=== PATIENT | male | born 1970 | race Caucasian/White ===

== ENCOUNTER 2022-07-11 06:25 | Emergency (ER) | payer BC, SELFPAY ==
[2022-07-11 06:26] VITALS: BP 154/90; PULSE 92; RESP 17; TEMP 36.6; O2SAT 98; BMI 27.8
[2022-07-11 06:54] VITALS: O2SAT 95
--- NOTE | 2022-07-11 06:55 | EKG12_ITS ---
Test Reason : SOB Blood Pressure : / mmHG Vent. Rate : 091 BPM Atrial Rate : 091 BPM P-R Int : 122 ms QRS Dur : 078 ms QT Int : 346 ms P-R-T Axes : 035 061 007 degrees QTc Int : 425 ms Normal sinus rhythm Normal ECG Confirmed by DANIELLE RAMIREZ, ARACELI ([id number]), news copy editor AKILA DIAZ ([id number]) on 07/15/2022 10:12:35 AM Referred By: Confirmed By:CECILIA SANTOS MD
[2022-07-11 07:03] VITALS: PULSE 90; RESP 18
[2022-07-11] MEDS: Ipratropium/Albuterol Sulfate 3 ML AMPUL.NEB INHALATION (07:04)
--- NOTE | 2022-07-11 07:23 | EDS_ITS ---
HPI History of Present Illness Chief Complaint: Shortness of Breath Narrative Narrative: Patient is 51-year-old male who reports a remote history of pneumonia at age 28 and age 38 and otherwise no clinically significant medical issues. He states that over the past 2 to 3 days he has had congestion and drainage and mild cough. He reports that if he begins to speak or walks across the room he feels like his oxygen level will drop and will have increased shortness of breath. He denies any chest pain or palpitations associated with this. However he states that the symptoms or not resolving on their own and secondary to this he comes in for evaluation [facility] Medical History Pneumonia Home Medications albuterol sulfate 90 mcg/actuation aerosol inhaler (Ventolin HFA) 1 - 2 puff inhalation Q4H PRN PRN Wheezing #1 device 07/11/22 [Rx Last Taken Unknown] prednisone 20 mg tablet 40 mg PO DAILY 5 days #10 tabs 07/11/22 [Rx Last Taken Unknown] Allergy/AdvReac Type Severity Reaction Status Date / Time No Known Allergies Allergy Verified 07/11/22 06:29 Surgical History no surgical history Social History Smoking Status: Never smoker [facility] ED Constitutional Constitutional ED: Denies chills or fever(s) ENT ENT ED: Reports rhinorrhea; Denies sore throat Cardiovascular Cardiovascular: Denies chest pain Respiratory/Chest Respiratory/Chest: Reports cough and dyspnea Gastrointestinal Gastrointestinal: Denies abdominal pain, diarrhea, nausea or vomiting Genitourinary Genitourinary ED: Denies dysuria Musculoskeletal Musculoskeletal: Reports myalgias Integumentary Denies rash Neurologic Neurologic: Denies headache(s) Hematologic/Lymphatic Hematologic/Lymphatic: Denies easy bleeding or easy bruising EXAM Physical Exam Const Vital Signs: 07/11/22 06:26 07/11/22 06:54 Temperature 98 F Temperature Source Oral Pulse Rate 92 Respiratory Rate 17 Respiratory Effort Short of Breath Respiratory Depth Normal Respiratory Pattern Tachypnea Blood Pressure 154/90 H Blood Pressure Mean 111 Pulse Ox 98 Oxygen Delivery Method Room Air Room Air Positive well nourished and well developed General Appearance ED: well developed HEENT Reports moist mucous membranes HEENT Narrative: Nasal mucosa is hyperemic and boggy and there is cobblestoning the posterior pharynx consistent with sinus drainage without airway edema or compromise Eyes PERRL and EOMs intact bilaterally Neck supple and no JVD Neck Narrative: Positive anterior cervical lymphadenopathy No crepitance noted Chest Wall palpation of chest normal Resp normal respiratory effort Resp Narrative: Breath sounds are diminished throughout with faint rhonchi noted in bilateral bases but otherwise no nasal flaring retractions tachypnea or accessory muscle use Cardio regular rate and regular rhythm GI normal to inspection, nondistended, normoactive bowel sounds, non-tender, non- distended and no masses Auscultation: normoactive bowel sounds Palpation: soft Extremity normal to inspection Extremity Narrative: No asymmetric edema no pitting edema negative Homans' sign bilaterally Neuro oriented x3 and CN's II-XII intact bilaterally Sensorium / Orientation: alert Psych mental status grossly normal Skin no rashes or lesions noted MDM MDM MDM Narrative Medical decision making narrative: Patient presented to the ER satting 98% on room air and afebrile. His work of breathing was normal as well but as he reported increased shortness of breath with exertion and elected perform a basic cardiac work-up. Also with his congestion and drainage there is concern this could be COVID or influenza related so a viral swab was added. At this time the labs and x-ray results are pending so the patient will be signed out to the incoming day physician Dr. Wakefield. I feel that if patient's work-up is negative and he can ambulate without desaturation then he should be safe for discharge as this is most likely lung inflammation from a viral source. Discharge Plan Triage Chief Complaint: Shortness of Breath ED Provider: Samuel Morris Dx/Rx/DC Orders Clinical Impression: Viral syndrome, Dyspnea Instructions: ED Dyspnea, ED URI, Viral, No Abx (Adult) Prescriptions: New prednisone 20 mg tablet 40 mg PO DAILY 5 Days Qty: 10 0RF albuterol sulfate [Ventolin HFA] 90 mcg/actuation HFA aerosol inhaler 1 - 2 puff inhalation Q4H PRN PRN (Reason: Wheezing) Qty: 1 0RF Primary Care Provider: Sunil Devine Referrals: Sunil Devine MD [Primary Care Provider] - Activity Restrictions/Additional Instructions: Please use the prescribed steroids and inhaler to help with lung inflammation and breathing and return to the ER should you have any further concerns
[2022-07-11 07:34] LABS: Absolute Lymphocyte Count 2.59 X10^3/uL (0.83-4.51); Absolute Neutrophil Count 7.3 X10^3/uL (2.0-7.7); Basophil# 0.04 X10^3/uL; Basophil% 0.4 % (0-1); Eosinophil# 0.06 X10^3/uL; Eosinophils% 0.5 % (0-5); Hemoglobin 14.7 g/dL (13.0-16.5); Lymphocyte # 2.59 X10^3/ul (0.83-4.51); Lymphocyte % 23.1 % (19-41); Mean Corp Hgb Conc 32.7 g/dL (32-36); Mean Corpuscular Hgb 25.8 pg (27.0-32.0); Mean Corpuscular Volume 78.9 fL (80-94); Mean Platelet Vol. 10.1 fl (6.2-12.0); Monocyte# 1.22 X10^3/uL; Monocyte% 10.9 % (0-10); NRBC Flagged by Analyzer 0 % (0-5); Neutrophil # 7.29 X10^3/uL (2.7-7.7); Neutrophil % 64.8 % (47-70); POSITIVE COUNT YES; Platelet Count 306 K/mm3 (150-450); RBC Distribution Width CV 13.1 % (11.6-14.6); RBC Distribution Width SD 37.2 fl (35.1-43.9); White Blood Count 11.2 K/mm3 (4.4-11.0)
--- NOTE | 2022-07-11 07:40 | RAD_ITS ---
EXAM: XR CHEST, 2 VIEWS CLINICAL INDICATION: dyspnea TECHNIQUE: Frontal and lateral views of the chest. This report was created using [employer] report generation technology. COMPARISON: XR Chest dated July 20, 2012 FINDINGS: LUNGS AND PLEURAL SPACES: Shallow inspiration associated with minor atelectatic changes at the lung bases. No pneumothorax. No effusion. HEART: Normal heart size. MEDIASTINUM: No mediastinal or hilar mass. BONES/JOINTS: No acute abnormality. SOFT TISSUES: Normal. RAD/Chest PA and Lateral IMPRESSION: No acute cardiopulmonary abnormality. No interval change. Electronically Signed: Bacilio Cobb MD at 8:33 EST ,
[2022-07-11 07:42] LABS: Anion Gap 8 (5-15); BUN 7 mg/dL (7-18); BUN/Creat Ratio 6.8 RATIO (10-20); Calcium,Total 9.2 mg/dL (8.5-10.1); Chloride 102 mmol/L (98-107); Creatinine, Serum 1.03 mg/dL (0.70-1.30); EST Glomerular Filtration Rate 80 mL/min (>60); Est Glom Filt Rate - Afr Amer 97 mL/min (>60); Estimated Creatinine Clearance 85.64 ml/min; Glucose 146 mg/dL (74-106); Magnesium 2.5 mg/dL (1.6-2.6); Potassium 3.9 mmol/L (3.5-5.1); Sodium Level 136 mmol/L (136-145); Troponin-I HS 38 pg/mL (3.0-78.0)
[2022-07-11] MEDS: dexAMETHasone 10 MG/ML Vial IV (07:56)
[2022-07-11 07:57] LABS: Differential Indicated SCAN CRITERIA MET
[2022-07-11 09:22] VITALS: BP 137/85; PULSE 86; O2SAT 93
[2022-07-11 09:44] VITALS: BP 141/83; O2SAT 93
== END 2022-07-11 09:55 | disposition home or self-care (01) ==
PROVIDERS: Emergency Provider Emergency Medicine; PCP Family Medicine; Visit Provider Emergency Medicine
DX: B34.9 Viral infection, unspecified (principal); R06.00 Dyspnea, unspecified; Z87.01 Personal history of pneumonia (recurrent)
CPT/HCPCS: 71046; 80048; 83735; 84484; 85025; 87428; 93005; 94640; 96374; 99283; A4216

== ENCOUNTER 2024-03-06 17:03 | Emergency (ER) | payer BC, SELFPAY ==
[2024-03-06 17:05] VITALS: BP 133/85; PULSE 79; RESP 13; TEMP 36.6; O2SAT 97
--- NOTE | 2024-03-06 17:06 | EDS_ITS ---
HPI History of Present Illness Chief Complaint: Allergic Reaction Informant: patient and spouse/S.O. Narrative Narrative: 53-year-old healthy male was on his 0 turn lawnmower cutting the grass when a bee stung him in the right lower leg. He states he started itching profusely developing hives. He notes tingling to the bilateral lips. He states that last summer he had several bee stings that did not cause any reaction. He has no known allergies. He took Soledad prior to arrival. No vomiting or diarrhea. No wheezing. [facility] Medical History Pneumonia Home Medications ?Medication ?Instructions ?Recorded ?Last Taken ?Type albuterol sulfate 90 mcg/actuation 1 - 2 puff inhalation Q4H PRN PRN 07/11/22 Unknown Rx aerosol inhaler (Ventolin HFA) Wheezing #1 device prednisone 20 mg tablet 40 mg (2 x 20 mg) PO DAILY 5 days 07/11/22 Unknown Rx #10 tabs epinephrine 0.3 mg/0.3 mL 0.3 mg (0.3 mL) IM Q10M PRN PRN 03/06/24 Unknown Rx injection, auto-injector (EpiPen anaphylaxis #2 ea 2-Jasiel) Allergy/AdvReac Type Severity Reaction Status Date / Time bee venom protein (honey Allergy Severe Anaphylaxis Verified 03/06/24 17:04 bee) (bee sting) Social History Smoking Status: Never smoker ROS ROS ED Constitutional Constitutional ED: Denies chills or weight loss Eyes Eyes: Denies change in vision or diplopia ENT ENT ED: Denies ear pain, rhinorrhea or sore throat Cardiovascular Cardiovascular: Denies chest pain, orthopnea, palpitations or racing heartbeat Respiratory/Chest Respiratory/Chest: Denies cough, dyspnea or orthopnea Gastrointestinal Gastrointestinal: Denies abdominal pain, diarrhea, nausea or vomiting Genitourinary Genitourinary ED: Denies dysuria, hematuria or urinary frequency Musculoskeletal Musculoskeletal: Denies arthralgias or myalgias Integumentary Reports other Details: Diffuse hives ; Denies abscess or rash Neurologic Neurologic: Reports paresthesias; Denies headache(s) or weakness Psychiatric Psychiatric: Denies anxiety, depression, suicidal ideation or suicidal thoughts Endocrine Endocrinology: Denies polydipsia, polyphagia or polyuria Allergic/Immunologic Allergic/Immunologic ED: Denies mouth swelling, tongue swelling or urticaria EXAM Physical Exam Const Vital Signs: 03/06/24 17:05 03/06/24 18:03 Temperature 98 F Temperature Source Oral Pulse Rate 79 73 Respiratory Rate 13 15 Blood Pressure 133/85 H 145/92 H Blood Pressure Mean 101 109 Pulse Ox 97 97 Oxygen Delivery Method Room Air Room Air Positive well nourished and well developed General Appearance ED: well developed HEENT Reports normocephalic, head/scalp atraumatic and moist mucous membranes HEENT Narrative: No significant lip tongue or uvula swelling. Eyes PERRL and EOMs intact bilaterally Neck no lymphadenopathy, supple and no JVD Resp normal respiratory effort and clear to auscultation bilaterally Cardio regular rate, regular rhythm and no murmurs GI normal to inspection, nondistended, normoactive bowel sounds and non-tender Palpation: soft Back/Spine no CVA tenderness and normal ROM Extremity normal to inspection General Extremety ED: Negative for edema General Extremity: Negative for edema Neuro oriented x3 and CN's II-XII intact bilaterally Sensorium / Orientation: alert Motor Exam: strength 5/5 throughout Psych mental status grossly normal Mood & Affect: Negative for depressed or tearful Skin no wounds Skin Narrative: Patient has hives on extremities and trunk. There are some mild hives neck and face. MDM MDM MDM Narrative Medical decision making narrative: Differential diagnosis includes but not limited to generalized allergic reaction anaphylaxis urticaria As I only see 1 organ system involvement that the skin Benadryl Solu-Medrol and Pepcid were administered. Patient had significant improvement at about the 1 hour moises. He will be observed for a total of 2 hours. Patient was instructed to take Benadryl at home. Topical Benadryl or hydrocortisone cream at the site of an animation as needed. A prescription for EpiPen will be given. Patient to return if worsening or concerns follow-up as needed History & Record Review Discussion w/independent historian: Patient and Significant other Discharge Plan Triage Chief Complaint: Allergic Reaction ED Provider: Dilip West Dx/Rx/DC Orders Clinical Impression: Allergic reaction to bee sting, Urticaria Instructions: ED BEE STING General Allergic Rxn Prescriptions: New epinephrine [EpiPen 2-Jasiel] 0.3 mg/0.3 mL auto-injector 0.3 mg IM Q10M PRN PRN (Reason: anaphylaxis) Qty: 2 0RF Rx Instructions: for 2 doses No Action prednisone 20 mg tablet 40 mg PO DAILY 5 Days Qty: 10 0RF albuterol sulfate [Ventolin HFA] 90 mcg/actuation HFA aerosol inhaler 1 - 2 puff inhalation Q4H PRN PRN (Reason: Wheezing) Qty: 1 0RF Primary Care Provider: Sunil Devine Referrals: Sunil Devine MD [[facility]] - As Needed Activity Restrictions/Additional Instructions: I would recommend Benadryl every 6 hours for the next 24 hours. You can use topical Benadryl or hydrocortisone cream at the site of the envenomation. You have also received a prescription for an EpiPen should you develop anaphylaxis as we discussed. Please return if worsening or you have any concerns Print Language: Bulgarian Disposition Disposition: Home, Self Care
[2024-03-06] MEDS: DiphenhydrAMINE 50 MG/ML Syringe 25 MG IV (17:12)
[2024-03-06] MEDS: MethylPREDNISolone 125 MG/2 ML Vial IV (17:12)
[2024-03-06] MEDS: Famotidine 20 MG Tablet 40 MG PO (17:13)
[2024-03-06 18:03] VITALS: BP 145/92; PULSE 73; RESP 15; O2SAT 97
[2024-03-06 19:00] VITALS: BP 134/88; PULSE 80; RESP 16; TEMP 36.6; O2SAT 95
== END 2024-03-06 19:09 | disposition home or self-care (01) ==
PROVIDERS: Emergency Provider Emergency Medicine; PCP Family Medicine; Visit Provider Emergency Medicine
DX: T63.441A Toxic effect of venom of bees, accidental (unintentional), initial encounter (principal); L50.9 Urticaria, unspecified
CPT/HCPCS: 96374; 96375; 99283; A4216

== ENCOUNTER 2024-07-27 07:19 | Day surgery (SDC) | payer BC, SELFPAY ==
[2024-07-27] VITALS (8 sets, daily range): BP systolic 90–130; BP diastolic 60–86; PULSE 67–92; RESP 16; TEMP 36.3–36.6; O2SAT 96–100; BMI 27.6
--- NOTE | 2024-07-27 | COLBX_PTH ---
PATIENT: CHANTAL POSADAS LOC: EN U#:[id number] AGE/SX: 53/M ROOM: RE07/27/[address]: Dr. Vlad Henriquez MD : 1970 BED: DIS: 07/27/2024 SPEC #: [id number] RECD: 07/27/24 13:25 STATUS: NORA TYSHAWN #: [id number] ROXI: 07/27/24 00:[address]: Vlad Henriquez DEPT: SURGICAL PATHOLOGY RECD BY: [place] ENTERED: 07/27/24 13:25 SP TYPE: COLON BX OTHR DR: Dr. Sunil Devine MD Tissues: COLON BIOPSY Procedures: Surgery Specimen Level IV HEADER OPERATION: Colonoscopy with biopsy PRE-OP DIAGNOSIS: Encounter for screening for malignant neoplasm of colon TISSUE SUBMITTED: Transverse colon polyp biopsy MICROSCOPIC DIAGNOSIS Transverse colon polyp, biopsy: Fragments of tubular adenoma. ERICK/ 07/28/2024 MICROSCOPIC DESCRIPTION Slides are reviewed. GROSS DESCRIPTION Received in fixative is one container labeled with the patient's name and designated Transverse colon polyp biopsy. The specimen consists of multiple irregular fragments of light verdin soft tissue that in aggregate measure 1.3 x 0.3 x 0.2 cm. The specimen is totally submitted in one cassette. 07/27/2024 TC:1 CPT:19008
--- NOTE | 2024-07-27 07:55 | PRE.ANES_ITS ---
ASA Classification* ASA Classification ASA Classification: 2 Assessment & Plan Anesthesia* Anesthesia Assessment Anesthesia Assessment: Discussed sedation and/or anesthesia options, risks, benefits, and alternatives with patient/parents/legal guardian/POA. Questions invited. The patient/parents/legal guardian/POA seems to understand and agrees to proceed with anesthesia plan. Reviewed the physical assessment, medical history, allergy history and patient home medications list prior to surgery/procedure/anesthetic and documented any changes. Performed airway and anesthesia risk assessments. Anesthesia Type Anesthesia Type: MAC History Source History Obtained from:: Patient and Chart Anesthesia Focused Assessment* Temperature: 97.9 F Pulse Rate: 92 Blood Pressure: 130/86 Respiratory Rate: 16 Pulse Ox: 100 Oxygen Delivery Method: Room Air Airway Assessment Mouth opens: >3 cm Mallampati Score: III Teeth Condition: Caps/Crowns (Left lower molar has a crown. It is tight.) Neck Range of motion (ROM): Limited ROM (Somewhat decreased extension) Focused Labs Anesthesia Preop lab: CBC WBC 11.2 K/mm3 (4.4-11.0) H 07/11/22 07:17 RBC 5.70 M/mm3 (4.6-6.2) 07/11/22 07:17 Hgb 14.7 g/dL (13.0-16.5) 07/11/22 07:17 Hct 45.0 % (40-54) 07/11/22 07:17 Plt Count 306 K/mm3 (150-450) 07/11/22 07:17 CHEMISTRY Potassium 3.9 mmol/L (3.5-5.1) 07/11/22 07:17 Sodium 136 mmol/L (136-145) 07/11/22 07:17 Magnesium 2.5 mg/dL (1.6-2.6) 07/11/22 07:17 BUN 7 mg/dL (7-18) 07/11/22 07:17 Creatinine 1.03 mg/dL (0.70-1.30) 07/11/22 07:17 Glucose 146 mg/dL (74-106) H 07/11/22 07:17 TSH 0.28 uIU/mL (0.358-3.74) L 08/03/12 15:21 COAG Pre-Assessment Diagnosis/Proposed Procedure Planned Operative Procedure(s): COLONOSCOPY Anesthesia History Anesthesia History - research technologist: Anesthesia History - research technologist Hx Hospitalization No 07/22/24 14:07 Any Problems With Anesthesia No 07/22/24 14:07 Cholinesterase deficiency No 07/22/24 14:07 You/Your Family Experience No 07/22/24 14:07 fever (hyperthermia) with Relationship Recent Exposure to Contagious No 07/27/24 07:38 Disease Does patient have nerve No 07/22/24 14:07 stimulator Patient instructed to have device shut off --Does patient have Pacemaker No 07/27/24 07:38 or ICD? When Was Last Pacemaker Check QUESTION #4 FULL TEXT: You/Your Family Experience fever (hyperthermia) with Anesthesia Last Oral Intake Last Oral intake: Last Oral Intake NPO since 04:30 07/27/24 07:38 Meds taken in AM with sips of No 07/27/24 07:38 water? Meds patient instructed to take am of surgery Any additional information?: Yes NPO since: :30 (Patient finished prep at 4:30 AM.) PONV PONV - research technologist: PONV - research technologist Female No 07/22/24 14:07 HX of Motion Sickness Yes 07/22/24 14:07 HX of N/V After Surgery No 07/22/24 14:07 Non-Smoker Yes 07/22/24 14:07 Duration of Surgery greater No 07/22/24 14:07 than 60 minutes Number of Risk Factors 2 07/22/24 14:07 PONV Score Moderate Risk 07/22/24 14:07 Height & Weight Height & Weight: Anesthesia: Height & Weight Height 5 ft 9 in 07/27/24 07:38 Weight: 84.7 kg 07/27/24 07:38 Body Mass Index (BMI) 27.6 07/27/24 07:38 Respiratory Assessment Respiratory Assessment - research technologist: Respiratory Tract Infection Hx - research technologist Hx Respiratory Tract Infection No 07/22/24 14:07 STOP Sleep Apnea STOP Sleep Apnea - research technologist: STOP Sleep Apnea - research technologist Hx Hypertension No 07/22/24 14:07 Hx Sleep Apnea No 07/22/24 14:07 CPAP BIPAP Do you snore loudly (louder No 07/22/24 14:07 than talking or can be heard Do you often feel tired/ No 07/22/24 14:07 fatigued/ sleepy during daytime? Has anyone observed you stop No 07/22/24 14:07 breathing during sleep? STOP Results Negative 07/22/24 14:07 QUESTION #5 FULL TEXT : Do you snore loudly (louder than talking or can be heard through closed doors)? Tobacco Use History Tobacco Use History - research technologist: Tobacco Use History - research technologist Tobacco Use Smoking Status Never smoker 07/22/24 14:07 Hx Tobacco Use No 07/22/24 14:07 Years Smoking Packs Smoked per Day Smoking Cessation Date was within the last 15 years Hx Smoking Cessation Date Hx Smoking Cessation Counseling Hematologic Medial History Hematologic Hx - research technologist: Hematologic Medical Hx - manager utilization Hx of Blood Transfusion No 07/22/24 14:07 Hx of Transfusion in last 3 No 07/22/24 14:07 Months Date of Last Transfusion (if within last 3 months) Ever experience any problems No 07/22/24 14:07 with transfusion(s)? Specify any problems Hx of Preganancy in last 3 N/A 07/22/24 14:07 Months Nurse Filling Out Transfusion [id number] 07/22/24 14:07 & Questions: Date: 07/22/24 07/22/24 14:07 Time: 14:08 07/22/24 14:07 Patient unable to answer at this time (ie. confused, unrespo /Reproduction History /Reproductive History - research technologist: /Reproductive Hx- research technologist Hx Now Gestational Age (in weeks): EDC: Hx Hx Para Hx Section SAB PFSH Medical History Non-smoker History of renal stone Family history of colon cancer in father Pneumonia Home Medications ?Medication ?Instructions ?Recorded ?Last Taken ?Type epinephrine 0.3 mg/0.3 mL 0.3 mg (0.3 mL) IM Q10M PRN PRN 03/06/24 Unknown Rx injection, auto-injector (EpiPen anaphylaxis #2 ea 2-Jasiel) Allergy/AdvReac Type Severity Reaction Status Date / Time bee venom protein (honey Allergy Severe Anaphylaxis Verified 07/27/24 07:38 bee) (bee sting) Family History Father Colon cancer, Onset Age: 60 w/brain mets at 62yrs Mother Hypertension Rheumatoid arthritis Surgical History (Updated 07/27/24 @ 07:[address] Jorge Grey MD) S/P pilonidal cyst excision Hx of tonsillectomy Social History household members: spouse current occupational status: employed Smoking Status: Never smoker alcohol intake: current alcohol intake frequency: holidays/special occasions only Alcohol type: beer substance use type: does not use Review of Systems (Anesthesia) ROS Narrative System reviewed and no additional complaints, except as documented.
--- NOTE | 2024-07-27 08:41 | HP.PCM_ITS ---
[facility] - General General Date of Admission: 07/27/24 Date of Service: 07/27/24 Chief Complaint: Screening colonoscopy [facility] Narrative CHANTAL POSADAS, is a 53 M who presents for elective screening colonoscopy. He has not had a previous colonoscopy. His father had colon cancer which he was diagnosed with around age 60. It sounds as though he either had a brain metastasis or a second primary. His father ultimately . Patient denies any GI issues or complaints. No blood in his stools. No black or tarry stools. No significant constipation or diarrhea. No other family history of colon polyps or cancers that he is aware of. He presents today for colonoscopy [facility] Medical History Non-smoker History of renal stone Family history of colon cancer in father Pneumonia Home Medications ?Medication ?Instructions ?Recorded ?Last Taken ?Type epinephrine 0.3 mg/0.3 mL 0.3 mg (0.3 mL) IM Q10M PRN PRN 03/06/24 Unknown Rx injection, auto-injector (EpiPen anaphylaxis #2 ea 2-Jasiel) Allergy/AdvReac Type Severity Reaction Status Date / Time bee venom protein (honey Allergy Severe Anaphylaxis Verified 07/27/24 07:38 bee) (bee sting) Family History Father Colon cancer, Onset Age: 60 w/brain mets at 62yrs Mother Hypertension Rheumatoid arthritis Surgical History S/P pilonidal cyst excision Hx of tonsillectomy Social History household members: spouse current occupational status: employed Smoking Status: Never smoker alcohol intake: current alcohol intake frequency: holidays/special occasions only Alcohol type: beer substance use type: does not use ROS Constitutional Constitutional: Reports systems reviewed and no addt'l complaints, except as documented Eyes Eyes: Reports systems reviewed and no addt'l complaints, except as documented ENT HEENT: Reports systems reviewed and no addt'l complaints, except as documented Cardiovascular Cardiovascular: Reports systems reviewed and no addt'l complaints, except as documented Respiratory/Chest Respiratory/Chest: Reports systems reviewed and no addt'l complaints, except as documented Gastrointestinal Gastrointestinal: Reports systems reviewed and no addt'l complaints, except as documented Vital Signs Vital Signs Vital Signs: 07/27/24 07:38 07/27/24 08:02 Temperature 97.9 F 97.9 F Temperature Source Temporal Pulse Rate 92 92 Respiratory Rate 16 16 Blood Pressure 130/86 H 130/86 H Blood Pressure Mean 100 Blood Pressure Source Monitor Blood Pressure Position Semi-Fowlers Blood Pressure Location Left Arm Pulse Ox 100 100 Oxygen Delivery Method Room Air Room Air Weight Weight: 186 lb 11.704 oz Body Mass Index (BMI) 27.6 Physical Exam Const alert, oriented x3 and no apparent distress Assessment & Plan Assessment/Plan (1) Encounter for screening for malignant neoplasm of colon: PLAN: The patient is a 53-year-old male in need of a screening colonoscopy. We discussed the details of the planned procedure including the risks benefits and alternatives. He wishes to proceed. This will begin momentarily.
--- NOTE | 2024-07-27 09:28 | OP.CCLET_ITS ---
07/27/2024 Sunil Devine [address] [place] [address] Re : Colonoscopy procedure for Dilip Merchant Dear Dr. Devine This procedure was performed on Saturday, July 27, 2024. My impressions and recommendations are as follows: Impressions : - One 4 mm polyp in the transverse colon, removed with a cold biopsy forceps. Resected and retrieved. - The examination was otherwise normal on direct and retroflexion views. Recommendations : - Discharge patient to home (ambulatory). - High fiber diet indefinitely. - Await pathology results. - Repeat colonoscopy in 3 - 5 years for surveillance. - Return to my office PRN. - Continue present medications. My findings are described in the full procedure note, which is enclosed. If I can be of further assistance, please feel free to contact me at . Sincerely, Vlad Henriquez MD 07/27/2024 9:27:31 AM This report has been signed electronically.
--- NOTE | 2024-07-27 09:28 | OP.COLON_ITS ---
Patient Name: Dilip Merchant Procedure Date: 07/27/2024 8:28 AM Date of : 1970 Age: 53 Procedure: Colonoscopy Indications: Screening in patient at increased risk: Colorectal cancer in father 60 or older Providers: Vlad Henriquez MD Referring MD: Sunil Devine Medicines: Monitored Anesthesia Care Patient Profile: Refer to note in patient chart for documentation of history and physical. Last Colonoscopy: none. The patient's first colonoscopy is today. Complications: No immediate complications. Estimated blood loss: Minimal. Procedure: Pre-Anesthesia Assessment: - Prior to the procedure, a History and Physical was performed, and patient medications and allergies were reviewed. The patient's tolerance of previous anesthesia was also reviewed. The risks and benefits of the procedure and the sedation options and risks were discussed with the patient. All questions were answered, and informed consent was obtained. Prior Anticoagulants: The patient has taken no anticoagulant or antiplatelet agents. ASA Grade Assessment: II - A patient with mild systemic disease. After reviewing the risks and benefits, the patient was deemed in satisfactory condition to undergo the procedure. After I obtained informed consent, the scope was passed under direct vision. Throughout the procedure, the patient's blood pressure, pulse, and oxygen saturations were monitored continuously. The adult colonoscope was introduced through the anus and advanced to the cecum, identified by appendiceal orifice and ileocecal valve. The ileocecal valve, appendiceal orifice, and rectum were photographed. The entire colon was well visualized. The colonoscopy was performed without difficulty. The patient tolerated the procedure well. The quality of the bowel preparation was adequate. Moderate Sedation: See the other procedure note for documentation of moderate sedation with intraservice time. Scope In: 8:55:18 AM Scope Withdrawal Time 0 hours 16 minutes 7 seconds Scope Out: 9:21:23 AM Total Procedure Duration Time 0 hours 26 minutes 5 seconds Findings: The perianal and digital rectal examinations were normal. A 4 mm polyp was found in the transverse colon. The polyp was semi-sessile. The polyp was removed with a cold biopsy forceps. Resection and retrieval were complete. Verification of patient identification for the specimen was done by the nurse using the patient's name, date and medical record number. Estimated blood loss was minimal. The exam was otherwise without abnormality on direct and retroflexion views. Impression: - One 4 mm polyp in the transverse colon, removed with a cold biopsy forceps. Resected and retrieved. - The examination was otherwise normal on direct and retroflexion views. Recommendation: - Discharge patient to home (ambulatory). - High fiber diet indefinitely. - Await pathology results. - Repeat colonoscopy in 3 - 5 years for surveillance. - Return to my office PRN. - Continue present medications. Procedure Code(s): --- Professional --- 43401, Colonoscopy, flexible; with biopsy, single or multiple Diagnosis Code(s): --- Professional --- D12.3, Benign neoplasm of transverse colon (hepatic flexure or splenic flexure) Z80.0, Family history of malignant neoplasm of digestive organs CPT copyright 2021 [employer]. All rights reserved. The codes documented in this report are preliminary and upon charter driver review may be revised to meet current compliance requirements. Vlad Henriquez MD 07/27/2024 9:27:31 AM This report has been signed electronically. Number of Addenda: 0 Note Initiated On: 07/27/2024 8:28 AM
--- NOTE | 2024-07-27 09:37 | PCM.POST.ANE ---
Anesthesia: Postop Eval I Current Vital Signs Temperature: 97.4 F Pulse Rate: 71 Blood Pressure: 90/71 Respiratory Rate: 16 Pulse Ox: 97 Oxygen Delivery Method: Room Air Assessment Airway patent: Yes Spontaneous unlabored respirations: Yes Mental status: Asleep nausea: No Vomiting: No Anesthesia Complication: No Fluid Hydration Crystalloid volume administer (ml): 50 Total IV fluid infused: 50 Progress Note Anesthesia document: Postop Eval 1 completed: Yes
--- NOTE | 2024-07-27 20:05 | PCM.POSTANE2 ---
Anesthesia Postop Eval I Sum Postop Eval Completion status Anesthesia document: Postop Eval 1 completed: Yes Anesthesia Postop Eval I Summary Anesthesia Postop Eval I Summary: Anesthesia Postop Eval I: Assessment Summary Airway patent Yes 07/27/24 09:37 [email or web address] Spontaneous unlabored Yes 07/27/24 09:37 [email or web address] respirations Mental status Asleep 07/27/24 09:37 [email or web address] nausea No 07/27/24 09:37 [email or web address] Vomiting No 07/27/24 09:37 [email or web address] Anesthesia Postop Eval I: Fluid Summary Crystalloid volume administer 50 07/27/24 09:37 [email or web address] (ml) Colloids volume administered ( ml) Blood Product volume administered (ml) Total IV fluid infused 50 07/27/24 09:37 [email or web address] Anesthesia Postop Eval I: Summary Notes Anesthesia Complication No 07/27/24 09:37 [email or web address] Anesthesia Complication Comment: Post-operative progress note Anesthesia: Postop Eval II Evaluation Mental status: Awake and Calm Pain Level: 0 nausea: No Vomiting: No Complications Anesthesia Complication: No
== END 2024-07-27 10:12 | disposition home or self-care (01) ==
LOC: EN 07:20 → AC 07:21
PROVIDERS: PCP Family Medicine; Referring Provider Family Medicine; Visit Provider Surgery
PROC: 0DJD8ZZ Inspection of Lower Intestinal Tract, Via Natural or Artificial Opening Endoscopic (ICD-10-PCS; CPT 45378; principal; 2024-07-27 08:25)
DX: Z12.11 Encounter for screening for malignant neoplasm of colon (principal); Z80.0 Family history of malignant neoplasm of digestive organs; D12.3 Benign neoplasm of transverse colon
CPT/HCPCS: 45380; 88305; A4216; J2405

== ENCOUNTER → 2024-08-19 | Outpatient (CLI) | payer BC, SELFPAY ==
[2024-08-19 17:51] LABS: ALB/GLOB Ratio 1.1 RATIO (0.9-2.4); AST(SGOT) 16 U/L (15-37); Alanine Aminotransfer ALT/SGPT 29 U/L (16-61); Albumin, Serum 3.9 g/dL (3.2-5.0); Alkaline Phosphatase 60 U/L (45-117); Anion Gap 4 (5-15); BUN 16 mg/dL (7-18); BUN/Creat Ratio 15.4 RATIO (10-20); Calcium,Total 9.2 mg/dL (8.5-10.1); Chloride 108 mmol/L (98-107); Cholesterol 172 mg/dL (200); Creatinine, Serum 1.04 mg/dL (0.70-1.30); EST Glomerular Filtration Rate 79 mL/min (>60); Est Glom Filt Rate - Afr Amer 95 mL/min (>60); Globulin 3.7 g/dL (2.2-4.2); Glucose 98 mg/dL (74-106); High Density Lipoprotein 49 mg/dL; PSA,Total - Annual Screen 2.68 ng/mL (0.00-4.00); Potassium 3.8 mmol/L (3.5-5.1); Protein, Total 7.6 g/dL (6.4-8.2); Sodium Level 139 mmol/L (136-145); Triglycerides 261 mg/dL; Very Low Density Lipoprotein 52 mg/dL (5-40)
[2024-08-19 18:31] LABS: Hepatitis C Antibody Non-Reactive (Nonreactive)
== END | disposition home or self-care (01) ==
LOC: MFPLAB 16:37
PROVIDERS: PCP Family Medicine; Referring Provider Family Medicine; Visit Provider Family Medicine
DX: R63.4 Abnormal weight loss (principal); Z13.220 Encounter for screening for lipoid disorders; Z11.59 Encounter for screening for other viral diseases; Z12.5 Encounter for screening for malignant neoplasm of prostate
CPT/HCPCS: 36415; 80053; 80061; 84153; 86803; G0103